=== PATIENT | male | born 1995 | race American Indian/Alaskan Native ===

== ENCOUNTER 2017-10-11 18:28 | Inpatient (IN) | payer OTHER ==
--- NOTE | 2017-10-11 20:20 | Emergency Department Report ---
HPI - General Time Seen by Provider: 10/11/17 20:00 - HPI HPI: 22-year-old -[place]ian male presents to the emergency department, with his mother at bedside, made of some possible depression. The patient himself is not currently talking and will not open his eyes. However when I attempt to take his arms/hands out of his pockets, he uses a lot of strength to make sure that I am unable to do this and it appears that the patient is cognizant about the situation but just acting defiantly. Therefore I have very little history from the patient himself. Apparently he does not have any past medical or psychiatric history. Mom says that lately he has been staying to himself and has been eating very little. She says that he gets up, uses the bathroom, and then goes back to his room by himself. The patient lives most of the time in [place] and mom has been saving up money to get him a ticket to get home and just recently bought him a ticket. She says that he is anxious to get back to [place]. However there has been no change once she got the ticket. She says that he usually, even before presentation, does spontaneous eye opening, walks around, will sometimes say a few words but he is basically not communicating much. ED Review of Systems ROS: Stated complaint: AMS Other details as noted in HPI Comment: All other systems reviewed and negative Constitutional: denies: chills, fever Eyes: denies: eye pain, eye discharge, vision change ENT: denies: ear pain, throat pain Respiratory: denies: cough, shortness of breath, wheezing Cardiovascular: denies: chest pain, palpitations Gastrointestinal: denies: abdominal pain, nausea, diarrhea Genitourinary: denies: urgency, dysuria Musculoskeletal: denies: back pain, joint swelling, arthralgia Skin: denies: rash, lesions Neurological: denies: headache, weakness, paresthesias Psychiatric: depression Physical Exam - Physical Exam Physical Exam: GENERAL: The patient is well-developed well-nourished. HENT: Normocephalic. Atraumatic. Patient has moist mucous membranes. EYES: Pupils equal reactive to light bilaterally. NECK: Supple. Trachea is midline. CHEST/LUNGS: Clear to auscultation. There is no respiratory distress noted. HEART/CARDIOVASCULAR: Regular. There is mild tachycardia. There is no murmur. ABDOMEN: Abdomen is soft, nontender. Patient has normal bowel sounds. There is no abdominal distention. SKIN: Skin is warm and dry. NEURO: Patient appears awake but will not open his eyes spontaneously. He will not follow any commands. He is nonverbal. He does withdraw from painful stimuli. MUSCULOSKELETAL: There is no tenderness or deformity. There is no limitation range of motion. There is no evidence of acute injury. ED Course - Reevaluation(s) Reevaluation #1: Patient was seen by Tess, the psych rn private duty, who was unable to elicit anything from the patient as well. He is still completely nonverbal, will not open his eyes. He then started making very loud grunting sounds and/or abnormal sounds were heard throughout the emergency department. Upon further questioning, mom admits that he appears occasionally to be talking to himself. All this together appears consistent with some type of acute psychosis. We will continue with a medical clearance but the patient has been made a 1013. 10/11/17 20:46 10/11/17 21:[address], I have been explaining to the patient himself, as well as mother, the process involved regarding the 1013 and medical clearance. I directly spoke with the patient, just in case he is just being stubborn and or defiant, to let him know that if he is able to answer comes cooperative, then possibly he would not require a 1013 and the longer or any medication to be given. However the patient has continued to maintain the same behavior. He is unwilling to allow any vitals to be obtained, labs to be drawn, or anything regarding his medical clearance. Mom is concerned regarding him getting antipsychotic medication. I spoke with her and told her that we will try and use some Ativan and or Benadryl at first but that some antipsychotic medication may be necessary if he still is not cooperative or if there is any danger towards himself or ED staff. ED Medical Decision Making - Lab Data Result diagrams: 10/11/17 21:16 10/11/17 21:16 - Radiology Data Radiology results: report reviewed EXAM: CT HEAD/BRAIN WO CON HISTORY: Altered mental status TECHNIQUE: CT evaluation was performed of the head without the use of intravenous contrast administration. PRIORS: None. FINDINGS: Normal density, size and configuration of the brain parenchyma and CSF containing spaces. Dural calcifications incidentally noted. No evidence of acute hemorrhage. no mass effect, edema or shift of midline structures. Visualized paranasal sinuses are clear. No pathologic fluid collection. Calvarium is normal. IMPRESSION: No CT evidence of acute intracranial process. Transcribed By: ARLIN Dictated By: HEIDI ORDONEZ DO Electronically Authenticated By: HEIDI ORDONEZ DO Signed Date/Time: 10/12/17 0106 - Medical Decision Making The patient was originally brought in by his mother saying that he just was not eating much and showing some signs of depression. However on physical examination, the patient appears more consistent with acute psychosis. He is refusing to open his eyes, refusing to talk and will not be cooperative. On one aspect, it appears as if he understands the situation but is acting defiantly. For instance, I attempted to take his hand out of his pocket in order to check his radial pulse and he was using a lot of strength and/or force to make sure that I was unable to do so. He then started making some abnormal sounds could be heard throughout most of the emergency department. He started blowing heavily out of his nostrils. Mom also says that he has been trying to get back to [place], which he considers home, and he has been upset as she did not have the money to get him a ticket. However she was able to save money and got him a ticket today but instead of him becoming happier or joyful, his symptoms have worsened. He was seen by the psych rn private duty, Tess, who agrees that he appears to show some signs of acute psychosis and does not appear safe for discharge and should be made a 1013, which he was. He was given some Ativan and some Benadryl to help with his agitation and cooperation and we did require some physical restraints for a short time. At some point during the workup, the patient became slightly more cooperative. He began speaking although he answers in very short one to 2 word sentences and speaks in a very low tone and was able to give some basic information. However he still did not want to discuss the behavior that led him to come into the emergency department or the behavior he exhibited upon presentation. The labs are unremarkable and do not show any etiology of the patient's symptoms. Urine drug screen and blood alcohol levels are negative. CT scan of the head was done that does not show any bleed, shift, mass or any other acute process. The patient has been medically cleared for psychiatric placement. The patient was moved towards the back of the emergency department and once again became very agitated and tried to elope. - Differential Diagnosis depression, mood disorder, bipolar disorder, schizophrenia Critical Care Time: No Critical care attestation.: If time is entered above; I have spent that time in minutes in the direct care of this critically ill patient, excluding procedure time. ED Disposition Clinical Impression: Acute psychosis Disposition: DC/TX-65 PSY HOSP/PSY UNIT Is pt being admited?: No Condition: Stable Referrals: PRIMARY CAREMD [Primary Care Provider] - 3-5 Days Time of Disposition: 01:22
[2017-10-11] MEDS ORDERED: BENADRYL IM ONE (20:57)
[2017-10-11] MEDS ORDERED: ATIVAN ONE (20:57)
[2017-10-11] MEDS ORDERED: BENADRYL ONE (20:57)
[2017-10-11] MEDS ORDERED: ATIVAN IM ONE (20:57)
[2017-10-11 21:44] LABS: Alanine Aminotransferase 9 units/L (7-56); Albumin 4.8 g/dL (3.9-5); BUN/Creatinine Ratio 17; Blood Urea Nitrogen 20 mg/dL (9-20); Calcium 9.8 mg/dL (8.4-10.2); Hemolysis Index 22
[2017-10-11 22:03] LABS: Hemoglobin 14.6 gm/dl (11.8-15.2); Mean Corpuscular HGB Conc 33 % (32-34); Mean Corpuscular Hemoglobin 28 pg (28-32); Mean Corpuscular Volume 86 fl (84-94); Platelet Count 257 K/mm3 (140-440); Red Blood Count 5.25 M/mm3 (3.65-5.03); Red Cell Distribution Width 13.9 % (13.2-15.2)
[2017-10-11 22:40] LABS: Anisocytosis 1+; Band Neutrophils # (Manual) 0.1 K/mm3; Eosinophils % (Manual) 0 % (0.0-4.3); Platelet Estimate Consistent w Auto; Total Cells Counted 100
[2017-10-11 23:30] LABS: Bilirubin,Urine NEG (Negative); Blood,Urine NEG (Negative); Color,Urine Yellow (Yellow); Mucus,Urine FEW /HPF; Protein,Urine <15 mg/dL mg/dL (Negative); Urobilinogen,Urine < 2.0 mg/dL (<2.0)
[2017-10-11 23:40] LABS: Amphetamine Screen,Urine PRESUMPTIVE NEGATIVE; Benzodiazepines Screen,Urine PRESUMPTIVE NEGATIVE; Cannabinoid Screen,Urine PRESUMPTIVE NEGATIVE; Cocaine Screen,Urine PRESUMPTIVE NEGATIVE; Methadone Screen,Urine PRESUMPTIVE NEGATIVE; Opiate Screen,Urine PRESUMPTIVE NEGATIVE
--- NOTE | 2017-10-12 01:10 | Cat Scan Report ---
FINAL REPORT EXAM: CT HEAD/BRAIN WO CON HISTORY: Altered mental status TECHNIQUE: CT evaluation was performed of the head without the use of intravenous contrast administration. PRIORS: None. FINDINGS: Normal density, size and configuration of the brain parenchyma and CSF containing spaces. Dural calcifications incidentally noted. No evidence of acute hemorrhage. no mass effect, edema or shift of midline structures. Visualized paranasal sinuses are clear. No pathologic fluid collection. Calvarium is normal. IMPRESSION: No CT evidence of acute intracranial process.
--- NOTE | 2017-10-12 14:33 | Consultation ---
History of Present Illness - Reason for Consult Consult date: 10/12/17 Reason for consult: Mental Health Evaluation Requesting physician: SANDRA SOLORIO - Chief Complaint Chief complaint: "I don't feel well mentally" - History of Present Psychiatric Illness 22-year-old -[place] male presents to the emergency department with bizarre behavior. Today the patient is calm during the assessment. He could not explain his behavior the last 3 days. He stated that he does not feel well "mentally." He stated not sleeping for several days prior to his admission to the hospital. He was asked did he have lots of energy during this time, he stated, "yes." Most of his answers to questions were vague. He would not confirm being suicidal, but stated having suicidal thoughts for several days. He would not confirm or deny being depressed, but the patient is withdrawn with poor eye contact. He denies HI's and AVH's. He admitted to having a poor appetite. He stated that he smoked marijuana in the past, but denies alcohol consumption (etoh). Per the record, the patient was given prn medication for agitation/psychosis overnight. Medications and Allergies Allergies Allergy/AdvReac Type Severity Reaction Status Date / Time Unable to Assess Allergy Unverified 10/11/17 21:27 Past psychiatric history - Past Medical History Past Medical History: No medical history Past Surgical History: No surgical history - past Psychiatric treatment and history psychiatric treatment history: Denies a psy hx and fam psy hx. - Social History Social history: lives with family Mental Status Exam - Vital signs Last Vital Signs Temp 97.4 F L 10/12/17 11:37 Pulse 100 H 10/12/17 11:37 Resp 18 10/12/17 11:37 BP 122/75 10/12/17 11:37 Pulse Ox 99 10/12/17 11:37 - Exam Narrative exam: MSE: Appearance: calm, cooperative Behavior: poor eye contact Speech: regular rate and tone Mood: "okay" withdrawn Affect: congruent to mood Thought Process: circumstantial Thought Content: denies HI's and AVH's. He would not confirm Si's, but stated having suicidal thoughts for several days Motor Activity: lying in bed Cognition: A/O x3 Insight: poor Judgment: poor Results Result Diagrams: 10/11/17 21:16 10/11/17 21:16 Abnormal lab results 10/11/17 10/11/17 Range/Units 21:16 21:16 WBC 11.8 H (4.5-11.0) K/mm3 RBC 5.25 H (3.65-5.03) M/mm3 Lymphocytes % (Manual) 49.0 H (13.4-35.0) % Lymphocytes # (Manual) 5.8 H (1.2-5.4) K/mm3 Potassium 3.4 L (3.6-5.0) mmol/L Chloride 91.7 L (98-107) mmol/L Carbon Dioxide 12 L (22-30) mmol/L Glucose 124 H (75-100) mg/dL All other labs normal. Assessment and Plan Assessment and plan: Impression: Unspecified Mood DO. Today the patient is calm during the assessment. DDx: Bipolar DO mixed episode Recommendation/Plan: Continue 1013 with placement to inpatient psy services. Start Seroquel 200 mg PO HS for mood. Discussed possible metabolic side effects of Seroquel with patient.
[2017-10-13] MEDS ORDERED: HALDOL IM ONE (06:31)
--- NOTE | 2017-10-13 17:27 | Progress Note ---
Subjective - Reason for Consult Consult date: 10/13/17 Reason for consult: follow up - Chief Complaint Chief complaint: would not speak 22-year-old -Malaysian male presents to the emergency department with bizarre behavior. He was verbal yesterday according to the record. Today he is not. He has not eaten today according to staff. He urinated on himself more than once today. He was observed in a position. He responded to direction to get out of the bed. He did not open his eyes. Mental Status Exam - Vital signs Last Vital Signs Temp 98.7 F 10/12/17 22:00 Pulse 96 H 10/12/17 22:00 Resp 18 10/12/17 22:00 BP 108/68 10/12/17 22:00 Pulse Ox 98 10/12/17 22:00 - Exam Narrative exam: He was observed to be in a position. He was non verbal and kept his eyes closed. He urinated on himself Assessment and Plan Impression: Unspecified Mood DO. unspecified psychosis r/o catatonia. DDx: Bipolar DO mixed episode Recommendation/Plan: Continue 1013 with placement to inpatient psy services. discontinue seroquel and start zyprexa zydis 5mg hs for compliance. Obtain an accurate weight. Monitor I& Os and encourage him to drink plenty of fluids and eat.
--- NOTE | 2017-10-15 11:00 | Progress Note ---
Subjective - Reason for Consult Consult date: 10/15/17 Reason for consult: Psychiatry Follow-up - Chief Complaint Chief complaint: "I think I am better" 22-year-old -Filipino male presents to the emergency department with bizarre behavior. Today the patient is calm, but disorganized during the assessment. His answers to questions were not logical when asked. His eye contact was poor the entire time during the interview. He denies SI/HI's and AVH 's. No indications of side effects of his medication. Per the staff, the patient did eat some of his meals yesterday. Mental Status Exam - Vital signs Last Vital Signs Temp 97.7 F 10/15/17 08:29 Pulse 83 10/15/17 08:29 Resp 17 10/15/17 08:29 BP 119/92 10/15/17 08:29 Pulse Ox 100 10/15/17 08:29 - Exam Narrative exam: MSE: Appearance: calm Behavior: poor eye contact Speech: regular rate and tone Mood: withdrawn Affect: congruent to mood Thought Process: circumstantial Thought Content: denies SI/HI's and AVH's Motor Activity: lying in bed Cognition: A/O x3 Insight: poor Judgment: poor Assessment and Plan Impression: Unspecified Mood DO with psy features. Today the patient is calm, but disorganized during the assessment. DDx: Bipolar DO mixed episode Recommendation/Plan: Continue 1013 with placement to inpatient psy services. Continue Zyprexa Zydis 5 mg PO ODT for mood/psychosis. Discussed possible metabolic side effects of Zyprexa Zydis with patient.
[2017-10-16] MEDS ORDERED: BENADRYL ONE ×2 (00:39→13:52)
[2017-10-16] MEDS ORDERED: BENADRYL IV ONE (01:08)
[2017-10-16] MEDS ORDERED: HALDOL ONE (13:53)
[2017-10-16] MEDS ORDERED: ATIVAN ONE (13:53)
[2017-10-16] MEDS ORDERED: HALDOL IM ONE (14:07)
[2017-10-16] MEDS ORDERED: BENADRYL IM ONE (14:07)
[2017-10-16] MEDS ORDERED: ATIVAN IM ONE (14:08)
--- NOTE | 2017-10-16 15:22 | Progress Note ---
Subjective - Reason for Consult Consult date: 10/16/17 Reason for consult: Psychiatry Follow-up - Chief Complaint Chief complaint: "Patient would not speak" 22-year-old -Citizen Of [place] male presents to the emergency department with bizarre behavior. Today the patient is calm during the assessment. He kept his head under the sheets and would not answer any questions asked of him. No gestures of SI/HI's. No indications of side effects of his medication. Mental Status Exam - Vital signs Last Vital Signs Temp 98.7 F 10/16/17 10:23 Pulse 52 L 10/16/17 10:23 Resp 20 10/16/17 10:46 BP 100/69 10/16/17 10:23 Pulse Ox 100 10/16/17 10:46 - Exam Narrative exam: MSE: Appearance: calm Behavior: poor eye contact Speech: unable to assess Mood: unable to assess Affect: congruent to mood Thought Process: unable to assess Thought Content: no gestures of SI/HI's and AVH's Motor Activity: lying in bed Cognition: A/O x3 Insight: unable to assess Judgment: unable to assess Assessment and Plan Impression: Unspecified Mood DO with psy features. Today the patient is calm during the assessment. He kept his head under the sheets and would not answer any questions asked of him. DDx: Bipolar DO mixed episode Recommendation/Plan: Continue 1013 with placement to inpatient psy services. Continue Zyprexa Zydis 5 mg PO ODT for mood/psychosis. Discussed possible metabolic side effects of Zyprexa Zydis with patient.
--- NOTE | 2017-10-18 11:02 | Progress Note ---
Subjective - Reason for Consult Consult date: 10/18/17 Reason for consult: Psychiatry Follow-up - Chief Complaint Chief complaint: "Something isn't right" 22-year-old -[place] male presents to the emergency department with bizarre behavior. Today the patient is calm during the assessment. He stated that he isn't right, but could not explain why when asked. He stated hearing voices around him, but try ignore them. Per the staff, the patient is eating his meal. He denies SI/HI's and VH's. He denies any side effects of his medication. Mental Status Exam - Vital signs Last Vital Signs Temp 98.2 F 10/17/17 19:45 Pulse 78 10/17/17 19:45 Resp 16 10/17/17 19:45 BP 127/83 10/17/17 19:45 Pulse Ox 100 10/17/17 19:45 - Exam Narrative exam: MSE: Appearance: calm Behavior: poor eye contact Speech: regular rate and tone Mood: "I am not right" Affect: flat Thought Process: circumstantial Thought Content: denies SI/HI's and VH's Motor Activity: ambulatory Cognition: A/O x3 Insight: poor Judgment: poor Assessment and Plan Impression: Unspecified Mood DO with psy features. Today the patient is calm during the assessment. DDx: Bipolar DO mixed episode Recommendation/Plan: Extended 1013 with placement to inpatient psy services. Modify Zyprexa Zydis to 10 mg PO ODT HS for psychosis/mood. Discussed possible metabolic side effects of Zyprexa Zydis patient.
[2017-10-18] MEDS ORDERED: GEODON IM ONE ×3 (17:06→20:53)
[2017-10-18] MEDS ORDERED: WATER FOR INJ (PF) IJ ONE (17:15)
--- NOTE | 2017-10-19 11:02 | Emergency Department Report ---
Luisa Doc - Documentation Documentation: I was asked to sign a transfer form on this patient who is "ready to go to [place]". As such I reviewed his laboratory database and found him to have a CO2 of 12 and anion gap of 39, 8 days ago. According to nursing staff, the patient has been doing well lately. His vital signs are stable. At this point my plan is to examine the patient and recheck his labs. On examination. The patient will answer questions yes or no. He denies pain. He doesn't elaborate on why he is in the emergency department. He denies overdose. He will follow some simple commands. However he will not provide any historical information. Review of systems Unobtainable Past medical history Acute psychosis Social history Denies substance abuse Physical exam Patient is laying with a sheet over his head. He is noncommunicative. HEENT sclerae and conjunctiva are clear oral mucosa appears a bit dry Neck supple no meningismus and no thyromegaly Respiratory breath sounds are clear and equal normal work of breathing Cardiovascular S1 and S2 regular rhythm and rate without murmur GI the abdomen is soft plan are nontender oral bowel sounds are appreciated no organomegaly Musculoskeletal no edema no deformity or range of motion Neurological exam nonfocal neurological exam cranial nerves as tested are intact no motor or sensory deficit Psychiatric the patient appears to be distracted disorganized and perhaps tangential thought. He may be responding to internal stimuli. He is not agitated nor anxious. He does not appear to be actively hallucinating. Laboratory data The anion gap has corrected. The CO2 has corrected. However the patient is found to be in rhabdomyolysis Clinical impression #1 acute psychosis #2 rhabdomyolysis #3 increased anion gap Plan Patient is referred to Dr. Russell of the hospital service for further care and management IV fluid has been initiated. I am uncertain why the patient had a substantial anion gap and low CO2 approximately 8 days ago.
[2017-10-19 11:37] LABS: Hematocrit 41.9 % (35.5-45.6); Hemoglobin 13.6 gm/dl (11.8-15.2); Mean Corpuscular HGB Conc 33 % (32-34); Mean Corpuscular Hemoglobin 28 pg (28-32); Mean Corpuscular Volume 85 fl (84-94); Platelet Count 209 K/mm3 (140-440); Red Blood Count 4.95 M/mm3 (3.65-5.03); Red Cell Distribution Width 13.7 % (13.2-15.2)
[2017-10-19 11:58] LABS: Alanine Aminotransferase 24 units/L (7-56); Albumin 4.3 g/dL (3.9-5); BUN/Creatinine Ratio 19; Blood Urea Nitrogen 13 mg/dL (9-20); Calcium 9.2 mg/dL (8.4-10.2); Creatine Kinase MB 2.9 ng/mL (0.0-4.0); Hemolysis Index 10
[2017-10-19 12:03] LABS: Bilirubin,Direct < 0.2 mg/dL (0-0.2)
[2017-10-19 12:13] LABS: Basophils % (Manual) 0 % (0.0-1.8); Total Cells Counted 100
[2017-10-19 12:14] LABS: RBC Morphology Normal
[2017-10-19] MEDS ORDERED: NACL 0.9% 1000 ML 1,000 ML IV ONE (13:24)
[2017-10-19] MEDS ORDERED: MORPHINE IV PRN ×2 (16:04→16:26)
[2017-10-19] MEDS ORDERED: TYLENOL PO PRN (16:04)
[2017-10-19] MEDS ORDERED: PERCOCET 5/325 PO PRN (16:04)
[2017-10-19] MEDS ORDERED: SODIUM CHLORIDE FLUSH SYRINGE 10 ML IV PRN (16:04)
[2017-10-19] MEDS ORDERED: ZOFRAN IV PRN (16:04)
[2017-10-19] MEDS ORDERED: AMBIEN PO PRN (16:04)
--- NOTE | 2017-10-19 16:04 | History and Physical Report ---
History of Present Illness Date of examination: 10/19/17 Date of admission: 10/19/17 13:48 Chief complaint: CC Elevated CK per ED physician-Rhabdomyolysis History of present illness: COUNCIL: 22-year-old -[place] male presented to the emergency department with bizarre behavior and catatonic state. Was in ER rm 14 for 8 days .Today while being cleared for transfer ED physician noted High CK levels of around 3900 = hence admission No SOB .Now calm and cooperative Past History Past Medical History: No medical history Past Surgical History: No surgical history Social history: lives with family, full code Family history: no significant family history Medications and Allergies Allergies Allergy/AdvReac Type Severity Reaction Status Date / Time No Known Allergies Allergy Unverified 10/17/17 23:10 Home Medications Medication Instructions Recorded Confirmed Last Taken Type Unobtainable 10/12/17 10/12/17 Unknown History Active Meds: Active Medications Olanzapine (Zyprexa Zydis) 10 mg PO HS MARYELLEN Last Admin: 10/19/17 06:54 Dose: Not Given Review of Systems All systems: negative Exam - Constitutional Vitals: Temp Pulse Resp BP Pulse Ox 97.3 F L 100 H 18 115/73 100 10/18/17 21:12 10/18/17 10:00 10/18/17 23:11 10/18/17 21:12 10/18/17 23:11 General appearance: Present: no acute distress, well-nourished - EENT Eyes: Present: PERRL ENT: hearing intact, clear oral mucosa - Neck Neck: Present: supple, normal ROM - Respiratory Respiratory effort: normal Respiratory: bilateral: CTA - Cardiovascular Heart Sounds: Present: S1 & S2. Absent: rub, click - Extremities Extremities: pulses symmetrical, No edema Peripheral Pulses: within normal limits - Abdominal General gastrointestinal: Present: soft, non-tender, non-distended, normal bowel sounds Male genitourinary: Present: normal - Integumentary Integumentary: Present: clear, warm, dry - Musculoskeletal Musculoskeletal: gait normal, strength equal bilaterally - Psychiatric Psychiatric: other - Neurologic Neurologic: CNII-XII intact, moves all extremities - Additional findings Additional findings: Appearance: calm Behavior: poor eye contact Speech: regular rate and tone Mood: Irritable Affect: flat Thought Process: circumstantial Thought Content: Unable to ascertain Motor Activity: ambulatory Cognition: A/O x3 Insight: poor Judgment: poor Results - Labs CBC & Chem 7: 10/20/17 06:42 10/19/17 11:20 Labs: Laboratory Last Values WBC 5.3 K/mm3 (4.5-11.0) 10/19/17 11:20 RBC 4.95 M/mm3 (3.65-5.03) 10/19/17 11:20 Hgb 13.6 gm/dl (11.8-15.2) 10/19/17 11:20 Hct 41.9 % (35.5-45.6) 10/19/17 11:20 MCV 85 fl (84-94) 10/19/17 11:20 MCH 28 pg (28-32) 10/19/17 11:20 MCHC 33 % (32-34) 10/19/17 11:20 RDW 13.7 % (13.2-15.2) 10/19/17 11:20 Plt Count 209 K/mm3 (140-440) 10/19/17 11:20 [place] % (Auto) Freight Service Inspector 10/19/17 11:20 Lymph # Freight Service Inspector 10/11/17 21:16 Add Manual Diff Complete 10/19/17 11:20 Total Counted 100 10/19/17 11:20 Seg Neuts % (Manual) 41.0 % (40.0-70.0) 10/19/17 11:20 Band Neutrophils % 0 % 10/19/17 11:20 Lymphocytes % (Manual) 49.0 % (13.4-35.0) H 10/19/17 11:20 Reactive Lymphs % (Man) 0 % 10/19/17 11:20 Monocytes % (Manual) 7.0 % (0.0-7.3) 10/19/17 11:20 Eosinophils % (Manual) 3.0 % (0.0-4.3) 10/19/17 11:20 Basophils % (Manual) 0 % (0.0-1.8) 10/19/17 11:20 Metamyelocytes % 0 % 10/19/17 11:20 Myelocytes % 0 % 10/19/17 11:20 Promyelocytes % 0 % 10/19/17 11:20 Blast Cells % 0 % 10/19/17 11:20 Nucleated RBC % Not Reportable 10/19/17 11:20 Seg Neutrophils # Man 2.2 K/mm3 (1.8-7.7) 10/19/17 11:20 Band Neutrophils # 0.0 K/mm3 10/19/17 11:20 Lymphocytes # (Manual) 2.6 K/mm3 (1.2-5.4) 10/19/17 11:20 Abs React Lymphs (Man) 0.0 K/mm3 10/19/17 11:20 Monocytes # (Manual) 0.4 K/mm3 (0.0-0.8) 10/19/17 11:20 Eosinophils # (Manual) 0.2 K/mm3 (0.0-0.4) 10/19/17 11:20 Basophils # (Manual) 0.0 K/mm3 (0.0-0.1) 10/19/17 11:20 Metamyelocytes # 0.0 K/mm3 10/19/17 11:20 Myelocytes # 0.0 K/mm3 10/19/17 11:20 Promyelocytes # 0.0 K/mm3 10/19/17 11:20 Blast Cells # 0.0 K/mm3 10/19/17 11:20 WBC Morphology Not Reportable 10/19/17 11:20 Hypersegmented Neuts Not Reportable 10/19/17 11:20 Hyposegmented Neuts Not Reportable 10/19/17 11:20 Hypogranular Neuts Not Reportable 10/19/17 11:20 Smudge Cells Not Reportable 10/19/17 11:20 Toxic Granulation Not Reportable 10/19/17 11:20 Toxic Vacuolation Not Reportable 10/19/17 11:20 Dohle Bodies Not Reportable 10/19/17 11:20 Pelger-Huet Anomaly Not Reportable 10/19/17 11:20 Stanislav Rods Not Reportable 10/19/17 11:20 Platelet Estimate Appears normal 10/19/17 11:20 Clumped Platelets Not Reportable 10/19/17 11:20 Plt Clumps, EDTA Not Reportable 10/19/17 11:20 Large Platelets Not Reportable 10/19/17 11:20 Giant Platelets Not Reportable 10/19/17 11:20 Platelet Satelliting Not Reportable 10/19/17 11:20 Plt Morphology Comment Not Reportable 10/19/17 11:20 RBC Morphology Normal 10/19/17 11:20 Dimorphic RBCs Not Reportable 10/19/17 11:20 Polychromasia Not Reportable 10/19/17 11:20 Hypochromasia Not Reportable 10/19/17 11:20 Poikilocytosis Not Reportable 10/19/17 11:20 Anisocytosis Not Reportable 10/19/17 11:20 Microcytosis Not Reportable 10/19/17 11:20 Macrocytosis Not Reportable 10/19/17 11:20 Spherocytes Not Reportable 10/19/17 11:20 Pappenheimer Bodies Not Reportable 10/19/17 11:20 Sickle Cells Not Reportable 10/19/17 11:20 Target Cells Not Reportable 10/19/17 11:20 Tear Drop Cells Not Reportable 10/19/17 11:20 Ovalocytes Not Reportable 10/19/17 11:20 Helmet Cells Not Reportable 10/19/17 11:20 Quiles-[place] Bodies Not Reportable 10/19/17 11:20 [place] Rings Not Reportable 10/19/17 11:20 [place] Cells Not Reportable 10/19/17 11:20 Bite Cells Not Reportable 10/19/17 11:20 Crenated Cell Not Reportable 10/19/17 11:20 Elliptocytes Not Reportable 10/19/17 11:20 Acanthocytes (Spur) Not Reportable 10/19/17 11:20 Rouleaux Not Reportable 10/19/17 11:20 Hemoglobin C Crystals Not Reportable 10/19/17 11:20 Schistocytes Not Reportable 10/19/17 11:20 Malaria parasites Not Reportable 10/19/17 11:20 Cali Bodies Not Reportable 10/19/17 11:20 Hem Pathologist Commnt No 10/19/17 11:20 Sodium 137 mmol/L (137-145) 10/19/17 11:20 Potassium 3.5 mmol/L (3.6-5.0) L 10/19/17 11:20 Chloride 95.9 mmol/L (98-107) L 10/19/17 11:20 Carbon Dioxide 27 mmol/L (22-30) 10/19/17 11:20 Anion Gap 18 mmol/L 10/19/17 11:20 BUN 13 mg/dL (9-20) 10/19/17 11:20 Creatinine 0.7 mg/dL (0.8-1.5) L 10/19/17 11:20 Estimated GFR > 60 ml/min 10/19/17 11:20 BUN/Creatinine Ratio 19 % 10/19/17 11:20 Glucose 71 mg/dL (75-100) L 10/19/17 11:20 Lactic Acid 1.20 mmol/L (0.7-2.0) 10/19/17 11:20 Calcium 9.2 mg/dL (8.4-10.2) 10/19/17 11:20 Total Bilirubin 0.60 mg/dL (0.1-1.2) 10/19/17 11:20 Direct Bilirubin < 0.2 mg/dL (0-0.2) 10/19/17 11:20 AST 59 units/L (5-40) H 10/19/17 11:20 ALT 24 units/L (7-56) 10/19/17 11:20 Alkaline Phosphatase 52 units/L (35-129) 10/19/17 11:20 Total Creatine Kinase 3907 units/L (55-170) H 10/19/17 11:20 CK-MB (CK-2) 2.9 ng/mL (0.0-4.0) 10/19/17 11:20 CK-MB (CK-2) Rel Index 0.0 (0-4) 10/19/17 11:20 Total Protein 7.2 g/dL (6.3-8.2) 10/19/17 11:20 Albumin 4.3 g/dL (3.9-5) 10/19/17 11:20 Albumin/Globulin Ratio 1.5 % 10/19/17 11:20 TSH 1.970 mlU/mL (0.270-4.200) 10/11/17 21:16 Urine Color Yellow (Yellow) 10/11/17 23:09 Urine Turbidity Clear (Clear) 10/11/17 23:09 Urine pH 5.0 (5.0-7.0) 10/11/17 23:09 Ur Specific [place] 1.024 (1.003-1.030) 10/11/17 23:09 Urine Protein <15 mg/dl mg/dL (Negative) 10/11/17 23:09 Urine Glucose (UA) Neg mg/dL (Negative) 10/11/17 23:09 Urine Ketones 20 mg/dL (Negative) 10/11/17 23:09 Urine Blood Neg (Negative) 10/11/17 23:09 Urine Nitrite Neg (Negative) 10/11/17 23:09 Urine Bilirubin Neg (Negative) 10/11/17 23:09 Urine Urobilinogen < 2.0 mg/dL (<2.0) 10/11/17 23:09 Ur Leukocyte Esterase Neg (Negative) 10/11/17 23:09 Urine WBC (Auto) 2.0 /HPF (0.0-6.0) 10/11/17 23:09 Urine RBC (Auto) 1.0 /HPF (0.0-6.0) 10/11/17 23:09 Urine Mucus Few /HPF 10/11/17 23:09 Salicylates < 0.3 mg/dL (2.8-20.0) L 10/19/17 11:20 Urine Opiates Screen Presumptive negative 10/11/17 23:09 Urine Methadone Screen Presumptive negative 10/11/17 23:09 Acetaminophen < 15.0 ug/mL (10.0-30.0) 10/19/17 11:20 Ur Barbiturates Screen Presumptive negative 10/11/17 23:09 Ur Phencyclidine Scrn Presumptive negative 10/11/17 23:09 Ur Amphetamines Screen Presumptive negative 10/11/17 23:09 U Benzodiazepines Scrn Presumptive negative 10/11/17 23:09 Urine Cocaine Screen Presumptive negative 10/11/17 23:09 U Marijuana (THC) Screen Presumptive negative 10/11/17 23:09 Drugs of Abuse Note Disclamer 10/11/17 23:09 Plasma/Serum Alcohol < 0.01 % (0-0.07) 10/11/17 21:16 Short CBC 10/19/17 10/20/17 Range/Units 11:20 06:42 WBC 5.3 5.0 (4.5-11.0) K/mm3 Hgb 13.6 12.5 (11.8-15.2) gm/dl Hct 41.9 38.2 (35.5-45.6) % Plt Count 209 195 (140-440) K/mm3 BMP 10/19/17 11:20 Sodium 137 Potassium 3.5 L Chloride 95.9 L Carbon Dioxide 27 BUN 13 Creatinine 0.7 L Glucose 71 L Calcium 9.2 Cardiac Enzymes 10/19/17 10/19/17 Range/Units 11:20 17:24 Total Creatine Kinase 3907 H 3015 H (55-170) units/L CK-MB (CK-2) 2.9 (0.0-4.0) ng/mL Liver Function 10/19/17 Range/Units 11:20 Total Bilirubin 0.60 (0.1-1.2) mg/dL Direct Bilirubin < 0.2 (0-0.2) mg/dL AST 59 H (5-40) units/L ALT 24 (7-56) units/L Alkaline Phosphatase 52 (35-129) units/L Albumin 4.3 (3.9-5) g/dL Assessment and Plan Advance Directives: Yes (Full code) VTE prophylaxis?: Chemical Plan of care discussed with patient/family: Yes - Patient Problems (1) Rhabdomyolysis Current Visit: Yes Status: Acute Qualifiers: Rhabdomyolysis type: non-traumatic Qualified Code(s): M62.82 - Rhabdomyolysis Plan to address problem: Probably sec to Catatonic state IV fluids for and trend CK Discharge if below 1000 and trending down (2) Acute psychosis Current Visit: No Status: Acute Plan to address problem: MH/psych consult (3) Hypokalemia Current Visit: Yes Status: Acute Plan to address problem: Supplemented (4) DVT prophylaxis Current Visit: Yes Status: Acute Plan to address problem: On Heparin
[2017-10-19] MEDS ORDERED: D5NS 1,000 ML IV SCH (17:00)
--- NOTE | 2017-10-19 17:26 | Progress Note ---
Subjective - Reason for Consult Consult date: 10/19/17 Reason for consult: psychiatric follow-up Requesting physician: JAIDEN PADRON - Chief Complaint Chief complaint: "Something isn't right" 22-year-old -[place] male presented to the emergency department with bizarre behavior. Yesterday patient was agitated and was banging on the palate was also had to receive when necessary to calm down. Today he was accepted in a psychiatric facility and prior to his transportation when his labs were reviewed his CK was elevated at 3907. Since his transfer was placed on hold and he is being admitted to the inpatient unit for correction of his CK and to prevent any rhabdomyolysis. Today the patient, was irritable during the discussion with me in the ED. Initially he stated he was "okay", and then cover himself with a sheet and refused to speak. Yesterday he had endorsed having auditory hallucinations. He was not cooperative today with me. Mental Status Exam - Vital signs Last Vital Signs Temp 98.5 F 10/19/17 16:05 Pulse 63 10/19/17 16:05 Resp 16 10/19/17 16:05 BP 100/65 10/19/17 16:05 Pulse Ox 100 10/19/17 16:05 - Exam Narrative exam: MSE: Appearance: calm Behavior: poor eye contact Speech: regular rate and tone Mood: Irritable Affect: flat Thought Process: circumstantial Thought Content: Unable to ascertain Motor Activity: ambulatory Cognition: A/O x3 Insight: poor Judgment: poor Assessment and Plan Assessment and Plan Impression: Unspecified Mood DO with psy features. Today the patient is calm during the assessment. DDx: Bipolar DO mixed episode Recommendation/Plan: Patient is being admitted to the medical floor for correction of his elevated CK levels. Would recommend holding off on any antipsychotic medications for now until the CK levels trended down. Zyprexa can be restarted back when the CK levels were return to normal. Continue the patient on 1013 and facilitate transfer to an inpatient psychiatric hospital for continued care.
[2017-10-19] MEDS: PEPCID PO SCH (22:27)
[2017-10-19] MEDS: HEPARIN SUB-Q SCH (22:29)
[2017-10-19] MEDS: SODIUM CHLORIDE FLUSH SYRINGE 10 ML IV SCH (22:29)
[2017-10-20 07:04] LABS: Basophils # (Auto) 0.1 K/mm3 (0.0-0.1); Basophils % (Auto) 1.4 % (0.0-1.8); Eosinophils # (Auto) 0.1 K/mm3 (0.0-0.4); Eosinophils % (Auto) 2.1 % (0.0-4.3); Hematocrit 38.2 % (35.5-45.6); Hemoglobin 12.5 gm/dl (11.8-15.2); Lymphocytes % (Auto) 41.3 % (13.4-35.0); Mean Corpuscular HGB Conc 33 % (32-34); Mean Corpuscular Hemoglobin 27 pg (28-32); Mean Corpuscular Volume 84 fl (84-94); Monocytes # (Auto) 0.8 K/mm3 (0.0-0.8); Monocytes % (Auto) 15.7 % (0.0-7.3); Platelet Count 195 K/mm3 (140-440); Red Blood Count 4.57 M/mm3 (3.65-5.03); Red Cell Distribution Width 13.9 % (13.2-15.2)
[2017-10-20 07:21] LABS: Alanine Aminotransferase 21 units/L (7-56); Albumin 3.8 g/dL (3.9-5); BUN/Creatinine Ratio 11; Blood Urea Nitrogen 9 mg/dL (9-20); Calcium 8.7 mg/dL (8.4-10.2); Hemolysis Index 30
[2017-10-20] MEDS: HEPARIN SUB-Q SCH ×2 (11:25→21:14)
[2017-10-20] MEDS: PEPCID PO SCH ×2 (11:25→21:14)
[2017-10-20] MEDS: SODIUM CHLORIDE FLUSH SYRINGE 10 ML IV SCH ×2 (11:25→21:16)
--- NOTE | 2017-10-20 13:35 | Progress Note ---
Assessment and Plan Assessment and plan: --Rhabdomyolysis; Continue aggressive IV hydration, closely monitor CK CK levels improved from 3741-8854, Preserved renal function, input output monitoring --Acute psychosis; Management per psychiatric, 1013 status Safety seat at the bedside --Hypokalemia; corrected, closely monitor electrolytes -- bipolar disorder; mixed episode; management per psych --DVT prophylaxis; Lovenox Closely monitor the patient had just management as needed Psych recommends transfer to inpatient psych facility when medically stable History Interval history: Patient seen and examined medical records reviewed Not very cooperative, porsha reports that the patient ate food Talks very little Not in acute distress Vital signs reviewed Hospitalist Physical - Physical exam Narrative exam: Refused physical examination - Constitutional Vitals: Temp Pulse Resp BP Pulse Ox 98.7 F 85 18 107/71 92 10/20/17 08:48 10/20/17 08:48 10/20/17 08:48 10/20/17 08:48 10/20/17 08:48 - Respiratory Respiratory: negative: rales, rhonchi Results - Labs CBC & Chem 7: 10/20/17 06:42 10/20/17 06:42 Labs: Laboratory Last Values WBC 5.0 K/mm3 (4.5-11.0) 10/20/17 06:42 RBC 4.57 M/mm3 (3.65-5.03) 10/20/17 06:42 Hgb 12.5 gm/dl (11.8-15.2) 10/20/17 06:42 Hct 38.2 % (35.5-45.6) 10/20/17 06:42 MCV 84 fl (84-94) 10/20/17 06:42 MCH 27 pg (28-32) L 10/20/17 06:42 MCHC 33 % (32-34) 10/20/17 06:42 RDW 13.9 % (13.2-15.2) 10/20/17 06:42 Plt Count 195 K/mm3 (140-440) 10/20/17 06:42 Lymph % (Auto) 41.3 % (13.4-35.0) H 10/20/17 06:42 [place] % (Auto) 15.7 % (0.0-7.3) H 10/20/17 06:42 Eos % (Auto) 2.1 % (0.0-4.3) 10/20/17 06:42 Baso % (Auto) 1.4 % (0.0-1.8) 10/20/17 06:42 Lymph # 2.0 K/mm3 (1.2-5.4) 10/20/17 06:42 [place] # 0.8 K/mm3 (0.0-0.8) 10/20/17 06:42 Eos # 0.1 K/mm3 (0.0-0.4) 10/20/17 06:42 Baso # 0.1 K/mm3 (0.0-0.1) 10/20/17 06:42 Add Manual Diff Complete 10/19/17 11:20 Total Counted 100 10/19/17 11:20 Seg Neutrophils % 39.5 % (40.0-70.0) L 10/20/17 06:42 Seg Neuts % (Manual) 41.0 % (40.0-70.0) 10/19/17 11:20 Band Neutrophils % 0 % 10/19/17 11:20 Lymphocytes % (Manual) 49.0 % (13.4-35.0) H 10/19/17 11:20 Reactive Lymphs % (Man) 0 % 10/19/17 11:20 Monocytes % (Manual) 7.0 % (0.0-7.3) 10/19/17 11:20 Eosinophils % (Manual) 3.0 % (0.0-4.3) 10/19/17 11:20 Basophils % (Manual) 0 % (0.0-1.8) 10/19/17 11:20 Metamyelocytes % 0 % 10/19/17 11:20 Myelocytes % 0 % 10/19/17 11:20 Promyelocytes % 0 % 10/19/17 11:20 Blast Cells % 0 % 10/19/17 11:20 Nucleated RBC % Not Reportable 10/19/17 11:20 Seg Neutrophils # 2.0 K/mm3 (1.8-7.7) 10/20/17 06:42 Seg Neutrophils # Man 2.2 K/mm3 (1.8-7.7) 10/19/17 11:20 Band Neutrophils # 0.0 K/mm3 10/19/17 11:20 Lymphocytes # (Manual) 2.6 K/mm3 (1.2-5.4) 10/19/17 11:20 Abs React Lymphs (Man) 0.0 K/mm3 10/19/17 11:20 Monocytes # (Manual) 0.4 K/mm3 (0.0-0.8) 10/19/17 11:20 Eosinophils # (Manual) 0.2 K/mm3 (0.0-0.4) 10/19/17 11:20 Basophils # (Manual) 0.0 K/mm3 (0.0-0.1) 10/19/17 11:20 Metamyelocytes # 0.0 K/mm3 10/19/17 11:20 Myelocytes # 0.0 K/mm3 10/19/17 11:20 Promyelocytes # 0.0 K/mm3 10/19/17 11:20 Blast Cells # 0.0 K/mm3 10/19/17 11:20 WBC Morphology Not Reportable 10/19/17 11:20 Hypersegmented Neuts Not Reportable 10/19/17 11:20 Hyposegmented Neuts Not Reportable 10/19/17 11:20 Hypogranular Neuts Not Reportable 10/19/17 11:20 Smudge Cells Not Reportable 10/19/17 11:20 Toxic Granulation Not Reportable 10/19/17 11:20 Toxic Vacuolation Not Reportable 10/19/17 11:20 Dohle Bodies Not Reportable 10/19/17 11:20 Pelger-Huet Anomaly Not Reportable 10/19/17 11:20 Stanislav Rods Not Reportable 10/19/17 11:20 Platelet Estimate Appears normal 10/19/17 11:20 Clumped Platelets Not Reportable 10/19/17 11:20 Plt Clumps, EDTA Not Reportable 10/19/17 11:20 Large Platelets Not Reportable 10/19/17 11:20 Giant Platelets Not Reportable 10/19/17 11:20 Platelet Satelliting Not Reportable 10/19/17 11:20 Plt Morphology Comment Not Reportable 10/19/17 11:20 RBC Morphology Normal 10/19/17 11:20 Dimorphic RBCs Not Reportable 10/19/17 11:20 Polychromasia Not Reportable 10/19/17 11:20 Hypochromasia Not Reportable 10/19/17 11:20 Poikilocytosis Not Reportable 10/19/17 11:20 Anisocytosis Not Reportable 10/19/17 11:20 Microcytosis Not Reportable 10/19/17 11:20 Macrocytosis Not Reportable 10/19/17 11:20 Spherocytes Not Reportable 10/19/17 11:20 Pappenheimer Bodies Not Reportable 10/19/17 11:20 Sickle Cells Not Reportable 10/19/17 11:20 Target Cells Not Reportable 10/19/17 11:20 Tear Drop Cells Not Reportable 10/19/17 11:20 Ovalocytes Not Reportable 10/19/17 11:20 Helmet Cells Not Reportable 10/19/17 11:20 Quiles-[place] Bodies Not Reportable 10/19/17 11:20 [place] Rings Not Reportable 10/19/17 11:20 [place] Cells Not Reportable 10/19/17 11:20 Bite Cells Not Reportable 10/19/17 11:20 Crenated Cell Not Reportable 10/19/17 11:20 Elliptocytes Not Reportable 10/19/17 11:20 Acanthocytes (Spur) Not Reportable 10/19/17 11:20 Rouleaux Not Reportable 10/19/17 11:20 Hemoglobin C Crystals Not Reportable 10/19/17 11:20 Schistocytes Not Reportable 10/19/17 11:20 Malaria parasites Not Reportable 10/19/17 11:20 Cali Bodies Not Reportable 10/19/17 11:20 Hem Pathologist Commnt No 10/19/17 11:20 Sodium 137 mmol/L (137-145) 10/20/17 06:42 Potassium 3.6 mmol/L (3.6-5.0) 10/20/17 06:42 Chloride 98.7 mmol/L (98-107) 10/20/17 06:42 Carbon Dioxide 25 mmol/L (22-30) 10/20/17 06:42 Anion Gap 17 mmol/L 10/20/17 06:42 BUN 9 mg/dL (9-20) 10/20/17 06:42 Creatinine 0.8 mg/dL (0.8-1.5) 10/20/17 06:42 Estimated GFR > 60 ml/min 10/20/17 06:42 BUN/Creatinine Ratio 11 % 10/20/17 06:42 Glucose 83 mg/dL (75-100) 10/20/17 06:42 Lactic Acid 1.20 mmol/L (0.7-2.0) 10/19/17 11:20 Calcium 8.7 mg/dL (8.4-10.2) 10/20/17 06:42 Total Bilirubin 0.40 mg/dL (0.1-1.2) 10/20/17 06:42 Direct Bilirubin < 0.2 mg/dL (0-0.2) 10/19/17 11:20 AST 43 units/L (5-40) H 10/20/17 06:42 ALT 21 units/L (7-56) 10/20/17 06:42 Alkaline Phosphatase 45 units/L (35-129) 10/20/17 06:42 Total Creatine Kinase 2504 units/L (55-170) H 10/20/17 06:42 CK-MB (CK-2) 2.9 ng/mL (0.0-4.0) 10/19/17 11:20 CK-MB (CK-2) Rel Index 0.0 (0-4) 10/19/17 11:20 Total Protein 6.6 g/dL (6.3-8.2) 10/20/17 06:42 Albumin 3.8 g/dL (3.9-5) L 10/20/17 06:42 Albumin/Globulin Ratio 1.4 % 10/20/17 06:42 TSH 1.970 mlU/mL (0.270-4.200) 10/11/17 21:16 Urine Color Yellow (Yellow) 10/11/17 23:09 Urine Turbidity Clear (Clear) 10/11/17 23:09 Urine pH 5.0 (5.0-7.0) 10/11/17 23:09 Ur Specific [place] 1.024 (1.003-1.030) 10/11/17 23:09 Urine Protein <15 mg/dl mg/dL (Negative) 10/11/17 23:09 Urine Glucose (UA) Neg mg/dL (Negative) 10/11/17 23:09 Urine Ketones 20 mg/dL (Negative) 10/11/17 23:09 Urine Blood Neg (Negative) 10/11/17 23:09 Urine Nitrite Neg (Negative) 10/11/17 23:09 Urine Bilirubin Neg (Negative) 10/11/17 23:09 Urine Urobilinogen < 2.0 mg/dL (<2.0) 10/11/17 23:09 Ur Leukocyte Esterase Neg (Negative) 10/11/17 23:09 Urine WBC (Auto) 2.0 /HPF (0.0-6.0) 10/11/17 23:09 Urine RBC (Auto) 1.0 /HPF (0.0-6.0) 10/11/17 23:09 Urine Mucus Few /HPF 10/11/17 23:09 Salicylates < 0.3 mg/dL (2.8-20.0) L 10/19/17 11:20 Urine Opiates Screen Presumptive negative 10/11/17 23:09 Urine Methadone Screen Presumptive negative 10/11/17 23:09 Acetaminophen < 15.0 ug/mL (10.0-30.0) 10/19/17 11:20 Ur Barbiturates Screen Presumptive negative 10/11/17 23:09 Ur Phencyclidine Scrn Presumptive negative 10/11/17 23:09 Ur Amphetamines Screen Presumptive negative 10/11/17 23:09 U Benzodiazepines Scrn Presumptive negative 10/11/17 23:09 Urine Cocaine Screen Presumptive negative 10/11/17 23:09 U Marijuana (THC) Screen Presumptive negative 10/11/17 23:09 Drugs of Abuse Note Disclamer 10/11/17 23:09 Plasma/Serum Alcohol < 0.01 % (0-0.07) 10/11/17 21:16
--- NOTE | 2017-10-20 17:52 | Progress Note ---
Subjective - Reason for Consult Consult date: 10/20/17 Reason for consult: Psychiatric Follow-up Evaluation - Chief Complaint Chief complaint: "I'm alright." Maykel is a 22-year-old -[place] male presented to the emergency department with bizarre behavior. Today, he appears depressed. He endorses paranoid ideation. Patient is guarded and withdrawn. He believes his current drug regimen is effective. However, he feels that he does not need medication. Patient is medication compliant with no side effects noted/reported. Per staff patient ate breakfast, lunch, and dinner. Also, he completed his ADL's. Mental Status Exam - Vital signs Last Vital Signs Temp 97.6 F 10/20/17 16:11 Pulse 80 10/20/17 16:11 Resp 18 10/20/17 16:11 BP 88/46 10/20/17 16:11 Pulse Ox 97 10/20/17 16:11 - Exam Narrative exam: General Appearance: Hospital gown Attitude/Behavior: Cooperative, apathetic, evasive/guarded Sensorium: Distracted Orientation: Alert and oriented x 3 Psychomotor and Musculoskeletal Activity: WNL Mood: " I'm aright." Affect: Flat, Constricted Speech/Language: Slow Thought Process: Circumstantial Thought Content: Impoverished, Paranoid Perception: WNL Concentration/Attention: Impaired Memory: Intact Suicidal Ideation/Plan: "No" Homicidal Ideation/Plan: "No" Assessment and Plan Impression: Unspecified Mood DO with psychiatric features. Today patient is calm but depressed with flat affect. Paranoia is noted. He denies SI/HI and A/ VH. DDx: Bipolar DO mixed episode Recommendation/Plan: 1. Continue 1013 with placement to inpatient psychiatric services. 2. Continue Zyprexa Zydis to 10 mg PO ODT HS for psychosis/mood. Discussed medication indications, frequency, and possible side effects.
[2017-10-21] MEDS: SODIUM CHLORIDE FLUSH SYRINGE 10 ML IV SCH ×2 (10:00→22:22)
[2017-10-21] MEDS: PEPCID PO SCH ×2 (10:00→22:22)
[2017-10-21] MEDS: HEPARIN SUB-Q SCH ×2 (10:00→22:22)
--- NOTE | 2017-10-21 12:38 | Progress Note ---
Assessment and Plan Assessment and plan: --Rhabdomyolysis; CK levels trending down to date is 1900 Continue aggressive IV hydration, closely monitor input output Preserved renal function, --Acute psychosis; Management per psychiatric, 1013 status moid middle school teacher at the bedside --Hypokalemia; corrected, closely monitor electrolytes --Possible bipolar disorder; mixed episode; management per psych --DVT prophylaxis; Lovenox Continue current management Psych recommends transfer to inpatient psych facility when medically stable Patient's condition treatment plan discussed in detail with the mother over the phone I answered all her questions. Macario of care is reviewed with the patient's nurse History Interval history: Patient seen and examined today medical records reviewed Patient is more alert and awake and cooperative Wants to go home CK levels are in 1900 today with preserved renal function Alert awake oriented 3 not in acute distress Vital signs reviewed Hospitalist Physical - Constitutional Vitals: Temp Pulse Resp BP Pulse Ox 97.9 F 75 18 104/71 100 10/21/17 07:49 10/21/17 07:49 10/21/17 07:49 10/21/17 07:49 10/21/17 07:49 General appearance: Present: no acute distress, well-nourished - EENT Eyes: Present: PERRL, EOM intact - Neck Neck: Present: supple, normal ROM - Respiratory Respiratory effort: normal Respiratory: negative: rales, rhonchi, wheezing - Cardiovascular Rhythm: regular Heart Sounds: Present: S1 & S2 - Extremities Extremities: no ischemia, No edema - Abdominal General gastrointestinal: soft, non-tender, non-distended, normal bowel sounds - Integumentary Integumentary: Present: clear, warm - Psychiatric Psychiatric: appropriate mood/affect, cooperative - Neurologic Neurologic: CNII-XII intact, moves all extremities Results - Labs CBC & Chem 7: 10/20/17 06:42 10/20/17 06:42 Labs: Laboratory Last Values WBC 5.0 K/mm3 (4.5-11.0) 10/20/17 06:42 RBC 4.57 M/mm3 (3.65-5.03) 10/20/17 06:42 Hgb 12.5 gm/dl (11.8-15.2) 10/20/17 06:42 Hct 38.2 % (35.5-45.6) 10/20/17 06:42 MCV 84 fl (84-94) 10/20/17 06:42 MCH 27 pg (28-32) L 10/20/17 06:42 MCHC 33 % (32-34) 10/20/17 06:42 RDW 13.9 % (13.2-15.2) 10/20/17 06:42 Plt Count 195 K/mm3 (140-440) 10/20/17 06:42 Lymph % (Auto) 41.3 % (13.4-35.0) H 10/20/17 06:42 [place] % (Auto) 15.7 % (0.0-7.3) H 10/20/17 06:42 Eos % (Auto) 2.1 % (0.0-4.3) 10/20/17 06:42 Baso % (Auto) 1.4 % (0.0-1.8) 10/20/17 06:42 Lymph # 2.0 K/mm3 (1.2-5.4) 10/20/17 06:42 [place] # 0.8 K/mm3 (0.0-0.8) 10/20/17 06:42 Eos # 0.1 K/mm3 (0.0-0.4) 10/20/17 06:42 Baso # 0.1 K/mm3 (0.0-0.1) 10/20/17 06:42 Add Manual Diff Complete 10/19/17 11:20 Total Counted 100 10/19/17 11:20 Seg Neutrophils % 39.5 % (40.0-70.0) L 10/20/17 06:42 Seg Neuts % (Manual) 41.0 % (40.0-70.0) 10/19/17 11:20 Band Neutrophils % 0 % 10/19/17 11:20 Lymphocytes % (Manual) 49.0 % (13.4-35.0) H 10/19/17 11:20 Reactive Lymphs % (Man) 0 % 10/19/17 11:20 Monocytes % (Manual) 7.0 % (0.0-7.3) 10/19/17 11:20 Eosinophils % (Manual) 3.0 % (0.0-4.3) 10/19/17 11:20 Basophils % (Manual) 0 % (0.0-1.8) 10/19/17 11:20 Metamyelocytes % 0 % 10/19/17 11:20 Myelocytes % 0 % 10/19/17 11:20 Promyelocytes % 0 % 10/19/17 11:20 Blast Cells % 0 % 10/19/17 11:20 Nucleated RBC % Not Reportable 10/19/17 11:20 Seg Neutrophils # 2.0 K/mm3 (1.8-7.7) 10/20/17 06:42 Seg Neutrophils # Man 2.2 K/mm3 (1.8-7.7) 10/19/17 11:20 Band Neutrophils # 0.0 K/mm3 10/19/17 11:20 Lymphocytes # (Manual) 2.6 K/mm3 (1.2-5.4) 10/19/17 11:20 Abs React Lymphs (Man) 0.0 K/mm3 10/19/17 11:20 Monocytes # (Manual) 0.4 K/mm3 (0.0-0.8) 10/19/17 11:20 Eosinophils # (Manual) 0.2 K/mm3 (0.0-0.4) 10/19/17 11:20 Basophils # (Manual) 0.0 K/mm3 (0.0-0.1) 10/19/17 11:20 Metamyelocytes # 0.0 K/mm3 10/19/17 11:20 Myelocytes # 0.0 K/mm3 10/19/17 11:20 Promyelocytes # 0.0 K/mm3 10/19/17 11:20 Blast Cells # 0.0 K/mm3 10/19/17 11:20 WBC Morphology Not Reportable 10/19/17 11:20 Hypersegmented Neuts Not Reportable 10/19/17 11:20 Hyposegmented Neuts Not Reportable 10/19/17 11:20 Hypogranular Neuts Not Reportable 10/19/17 11:20 Smudge Cells Not Reportable 10/19/17 11:20 Toxic Granulation Not Reportable 10/19/17 11:20 Toxic Vacuolation Not Reportable 10/19/17 11:20 Dohle Bodies Not Reportable 10/19/17 11:20 Pelger-Huet Anomaly Not Reportable 10/19/17 11:20 Stanislav Rods Not Reportable 10/19/17 11:20 Platelet Estimate Appears normal 10/19/17 11:20 Clumped Platelets Not Reportable 10/19/17 11:20 Plt Clumps, EDTA Not Reportable 10/19/17 11:20 Large Platelets Not Reportable 10/19/17 11:20 Giant Platelets Not Reportable 10/19/17 11:20 Platelet Satelliting Not Reportable 10/19/17 11:20 Plt Morphology Comment Not Reportable 10/19/17 11:20 RBC Morphology Normal 10/19/17 11:20 Dimorphic RBCs Not Reportable 10/19/17 11:20 Polychromasia Not Reportable 10/19/17 11:20 Hypochromasia Not Reportable 10/19/17 11:20 Poikilocytosis Not Reportable 10/19/17 11:20 Anisocytosis Not Reportable 10/19/17 11:20 Microcytosis Not Reportable 10/19/17 11:20 Macrocytosis Not Reportable 10/19/17 11:20 Spherocytes Not Reportable 10/19/17 11:20 Pappenheimer Bodies Not Reportable 10/19/17 11:20 Sickle Cells Not Reportable 10/19/17 11:20 Target Cells Not Reportable 10/19/17 11:20 Tear Drop Cells Not Reportable 10/19/17 11:20 Ovalocytes Not Reportable 10/19/17 11:20 Helmet Cells Not Reportable 10/19/17 11:20 [place] Bodies Not Reportable 10/19/17 11:20 [place] Rings Not Reportable 10/19/17 11:20 [place] Cells Not Reportable 10/19/17 11:20 Bite Cells Not Reportable 10/19/17 11:20 Crenated Cell Not Reportable 10/19/17 11:20 Elliptocytes Not Reportable 10/19/17 11:20 Acanthocytes (Spur) Not Reportable 10/19/17 11:20 Rouleaux Not Reportable 10/19/17 11:20 Hemoglobin C Crystals Not Reportable 10/19/17 11:20 Schistocytes Not Reportable 10/19/17 11:20 Malaria parasites Not Reportable 10/19/17 11:20 [place] Bodies Not Reportable 10/19/17 11:20 Hem Pathologist Commnt No 10/19/17 11:20 Sodium 137 mmol/L (137-145) 10/20/17 06:42 Potassium 3.6 mmol/L (3.6-5.0) 10/20/17 06:42 Chloride 98.7 mmol/L (98-107) 10/20/17 06:42 Carbon Dioxide 25 mmol/L (22-30) 10/20/17 06:42 Anion Gap 17 mmol/L 10/20/17 06:42 BUN 9 mg/dL (9-20) 10/20/17 06:42 Creatinine 0.8 mg/dL (0.8-1.5) 10/20/17 06:42 Estimated GFR > 60 ml/min 10/20/17 06:42 BUN/Creatinine Ratio 11 % 10/20/17 06:42 Glucose 83 mg/dL (75-100) 10/20/17 06:42 Lactic Acid 1.20 mmol/L (0.7-2.0) 10/19/17 11:20 Calcium 8.7 mg/dL (8.4-10.2) 10/20/17 06:42 Total Bilirubin 0.40 mg/dL (0.1-1.2) 10/20/17 06:42 Direct Bilirubin < 0.2 mg/dL (0-0.2) 10/19/17 11:20 AST 43 units/L (5-40) H 10/20/17 06:42 ALT 21 units/L (7-56) 10/20/17 06:42 Alkaline Phosphatase 45 units/L (35-129) 10/20/17 06:42 Total Creatine Kinase 1994 units/L (55-170) H 10/20/17 19:19 CK-MB (CK-2) 2.9 ng/mL (0.0-4.0) 10/19/17 11:20 CK-MB (CK-2) Rel Index 0.0 (0-4) 10/19/17 11:20 Total Protein 6.6 g/dL (6.3-8.2) 10/20/17 06:42 Albumin 3.8 g/dL (3.9-5) L 10/20/17 06:42 Albumin/Globulin Ratio 1.4 % 10/20/17 06:42 TSH 1.970 mlU/mL (0.270-4.200) 10/11/17 21:16 Urine Color Yellow (Yellow) 10/11/17 23:09 Urine Turbidity Clear (Clear) 10/11/17 23:09 Urine pH 5.0 (5.0-7.0) 10/11/17 23:09 Ur Specific [place] 1.024 (1.003-1.030) 10/11/17 23:09 Urine Protein <15 mg/dl mg/dL (Negative) 10/11/17 23:09 Urine Glucose (UA) Neg mg/dL (Negative) 10/11/17 23:09 Urine Ketones 20 mg/dL (Negative) 10/11/17 23:09 Urine Blood Neg (Negative) 10/11/17 23:09 Urine Nitrite Neg (Negative) 10/11/17 23:09 Urine Bilirubin Neg (Negative) 10/11/17 23:09 Urine Urobilinogen < 2.0 mg/dL (<2.0) 10/11/17 23:09 Ur Leukocyte Esterase Neg (Negative) 10/11/17 23:09 Urine WBC (Auto) 2.0 /HPF (0.0-6.0) 10/11/17 23:09 Urine RBC (Auto) 1.0 /HPF (0.0-6.0) 10/11/17 23:09 Urine Mucus Few /HPF 10/11/17 23:09 Salicylates < 0.3 mg/dL (2.8-20.0) L 10/19/17 11:20 Urine Opiates Screen Presumptive negative 10/11/17 23:09 Urine Methadone Screen Presumptive negative 10/11/17 23:09 Acetaminophen < 15.0 ug/mL (10.0-30.0) 10/19/17 11:20 Ur Barbiturates Screen Presumptive negative 10/11/17 23:09 Ur Phencyclidine Scrn Presumptive negative 10/11/17 23:09 Ur Amphetamines Screen Presumptive negative 10/11/17 23:09 U Benzodiazepines Scrn Presumptive negative 10/11/17 23:09 Urine Cocaine Screen Presumptive negative 10/11/17 23:09 U Marijuana (THC) Screen Presumptive negative 10/11/17 23:09 Drugs of Abuse Note Disclamer 10/11/17 23:09 Plasma/Serum Alcohol < 0.01 % (0-0.07) 10/11/17 21:16
[2017-10-22] MEDS: SODIUM CHLORIDE FLUSH SYRINGE 10 ML IV SCH ×2 (10:09→21:21)
[2017-10-22] MEDS: PEPCID PO SCH ×2 (10:09→21:01)
[2017-10-22] MEDS: HEPARIN SUB-Q SCH ×2 (10:09→21:01)
--- NOTE | 2017-10-22 10:39 | Progress Note ---
Subjective - Reason for Consult Consult date: 10/22/17 Reason for consult: Psychiatry Follow-up - Chief Complaint Chief complaint: "The patient refuse to talk" 22-year-old -[place] male presents to the emergency department with bizarre behavior. Today the patient is uncooperative during the assessment. per the sitter, the patient ate "most" of his breakfast this morning. The patient refuses to answer questions. He kept his head covered during the interview. Per collateral information from his mother Ms Roopa Fernandez, she stated that her son had been experiencing bizarre behavior and a poor appetite intermittently for at least 2 months. She denies that her son has a mental health dx. Also, she denies a fam hx of mental illness. Mental Status Exam - Vital signs Last Vital Signs Temp 98.3 F 10/22/17 07:16 Pulse 68 10/22/17 07:16 Resp 20 10/22/17 07:16 BP 98/57 10/22/17 07:16 Pulse Ox 99 10/22/17 07:16 - Exam Narrative exam: Unable to complete MSE, patient is uncooperative. Assessment and Plan Impression: Unspecified Mood DO with psy features. Today the patient is uncooperative during the assessment. Last CK 1993. DDx: Bipolar DO mixed episode Recommendation/Plan: Continue 1013 with placement to inpatient psy services once medically clear. Hold antipsychotics until CK level normalize.
[2017-10-22 11:00] LABS: BUN/Creatinine Ratio 10; Blood Urea Nitrogen 8 mg/dL (9-20); Calcium 9.6 mg/dL (8.4-10.2); Hemolysis Index 16
[2017-10-22] MEDS ORDERED: NACL 0.9% 500 ML 500 ML IV ONE (11:00)
--- NOTE | 2017-10-22 14:04 | Discharge Summary ---
Providers - Providers Date of Admission: 10/19/17 13:48 Date of discharge: 10/22/17 Attending physician: NOEL PATEL 10/19/17 Consult to Case Management [CONS] Routine Services Needed at Discharge: Extraction Supervisor Notified:: serene 10/19/17 16:11 Consult to Mental Health [CONS] Routine Reason For Exam: [place] consult to:: roberto/fred Notified:: Phone number called:: [phone] Was contact made?: Yes If yes, spoke with:: darrell Time called:: 09:42 Primary care physician: SENIOR SOFTWARE PROJECT MANAGER Hospitalization Reason for admission: bizarre behavior/rhabdomyolysis Condition: Stable Hospital course: --Rhabdomyolysis; CK levels trending down to date is 1900 Continue aggressive IV hydration, closely monitor input output Preserved renal function, --Acute psychosis; Management per psychiatric, 1013 status communications intern at the bedside --Hypokalemia; corrected, closely monitor electrolytes --Possible bipolar disorder; mixed episode; management per psych Disposition: DC/[place]-65 PSY HOSP/PSY UNIT Time spent for discharge: 32 min Core Measure Documentation - Palliative Care Palliative Care/ Comfort Measures: Not Applicable - Core Measures Any of the following diagnoses?: none Exam - Constitutional Vitals: Temp Pulse Resp BP Pulse Ox 98.3 F 68 20 98/57 99 10/22/17 07:16 10/22/17 07:16 10/22/17 07:16 10/22/17 07:16 10/22/17 07:16 General appearance: Present: no acute distress, well-nourished - EENT Eyes: Present: PERRL, EOM intact - Neck Neck: Present: supple, normal ROM - Respiratory Respiratory effort: normal - Cardiovascular Rhythm: regular Heart Sounds: Present: S1 & S2 - Extremities Extremities: No edema - Abdominal General gastrointestinal: Present: soft, non-tender - Integumentary Integumentary: Present: clear, warm - Musculoskeletal Musculoskeletal: strength equal bilaterally - Psychiatric Psychiatric: other (refuses to talk) - Neurologic Neurologic: other (refuses to talk) Plan Activity: advance as tolerated, other (1013) Diet: regular, other (plenty of oral fluids) Additional Instructions: Patient is being transferred to inpatient psych facility today. Medically stable. Advised to take plenty of oral fluids. Check CPK, BMP in 2 days Follow up with: PRIMARY CARE, [Primary Care Provider] - 3-5 Days
--- NOTE | 2017-10-22 17:32 | Progress Note ---
Assessment and Plan Assessment and plan: --Rhabdomyolysis; preserved renal function , CK levels improving today is 985, continue aggressive IV hydration, input output monitoring, plenty of oral fluids --Acute psychosis; not on any antipsychotic medications Management per psychiatric, 1013 status Transfer to inpatient psych facility when set up, patient medically stable --Hypokalemia; corrected, --Hypoglycemia; secondary to poor oral intake, encourage oral nutrition D5 normal saline, closely monitor glucose levels --Possible bipolar disorder; mixed episode; management per psych --DVT prophylaxis; Lovenox Disposition; transfer to inpatient psych facility when set up Follow CK levels 1013 status History Interval history: The patient was initially cleared medically for discharge and transfer to psych facility The nurse talked to psych facility, may need to reevaluate cannot be discharged today. Patient is comfortable sometimes refusing to be examined No new complaints CK 1900s, preserved renal function Vital signs reviewed stable 1013 status Hospitalist Physical - Constitutional Vitals: Temp Pulse Resp BP Pulse Ox 98.1 F 69 18 101/50 98 10/22/17 16:02 10/22/17 16:02 10/22/17 16:02 10/22/17 16:02 10/22/17 16:02 General appearance: Present: no acute distress, well-nourished - EENT Eyes: Present: PERRL, EOM intact - Neck Neck: Present: supple, normal ROM - Respiratory Respiratory effort: normal Respiratory: negative: rales, rhonchi, wheezing - Cardiovascular Rhythm: regular Heart Sounds: Present: S1 & S2 - Extremities Extremities: no ischemia, No edema - Abdominal General gastrointestinal: soft, non-tender, non-distended, normal bowel sounds - Integumentary Integumentary: Present: clear, warm - Psychiatric Psychiatric: appropriate mood/affect, cooperative - Neurologic Neurologic: CNII-XII intact, moves all extremities Results - Labs CBC & Chem 7: 10/20/17 06:42 10/22/17 09:42 Labs: Laboratory Last Values WBC 5.0 K/mm3 (4.5-11.0) 10/20/17 06:42 RBC 4.57 M/mm3 (3.65-5.03) 10/20/17 06:42 Hgb 12.5 gm/dl (11.8-15.2) 10/20/17 06:42 Hct 38.2 % (35.5-45.6) 10/20/17 06:42 MCV 84 fl (84-94) 10/20/17 06:42 MCH 27 pg (28-32) L 10/20/17 06:42 MCHC 33 % (32-34) 10/20/17 06:42 RDW 13.9 % (13.2-15.2) 10/20/17 06:42 Plt Count 195 K/mm3 (140-440) 10/20/17 06:42 Lymph % (Auto) 41.3 % (13.4-35.0) H 10/20/17 06:42 [place] % (Auto) 15.7 % (0.0-7.3) H 10/20/17 06:42 Eos % (Auto) 2.1 % (0.0-4.3) 10/20/17 06:42 Baso % (Auto) 1.4 % (0.0-1.8) 10/20/17 06:42 Lymph # 2.0 K/mm3 (1.2-5.4) 10/20/17 06:42 [place] # 0.8 K/mm3 (0.0-0.8) 10/20/17 06:42 Eos # 0.1 K/mm3 (0.0-0.4) 10/20/17 06:42 Baso # 0.1 K/mm3 (0.0-0.1) 10/20/17 06:42 Add Manual Diff Complete 10/19/17 11:20 Total Counted 100 10/19/17 11:20 Seg Neutrophils % 39.5 % (40.0-70.0) L 10/20/17 06:42 Seg Neuts % (Manual) 41.0 % (40.0-70.0) 10/19/17 11:20 Band Neutrophils % 0 % 10/19/17 11:20 Lymphocytes % (Manual) 49.0 % (13.4-35.0) H 10/19/17 11:20 Reactive Lymphs % (Man) 0 % 10/19/17 11:20 Monocytes % (Manual) 7.0 % (0.0-7.3) 10/19/17 11:20 Eosinophils % (Manual) 3.0 % (0.0-4.3) 10/19/17 11:20 Basophils % (Manual) 0 % (0.0-1.8) 10/19/17 11:20 Metamyelocytes % 0 % 10/19/17 11:20 Myelocytes % 0 % 10/19/17 11:20 Promyelocytes % 0 % 10/19/17 11:20 Blast Cells % 0 % 10/19/17 11:20 Nucleated RBC % Not Reportable 10/19/17 11:20 Seg Neutrophils # 2.0 K/mm3 (1.8-7.7) 10/20/17 06:42 Seg Neutrophils # Man 2.2 K/mm3 (1.8-7.7) 10/19/17 11:20 Band Neutrophils # 0.0 K/mm3 10/19/17 11:20 Lymphocytes # (Manual) 2.6 K/mm3 (1.2-5.4) 10/19/17 11:20 Abs React Lymphs (Man) 0.0 K/mm3 10/19/17 11:20 Monocytes # (Manual) 0.4 K/mm3 (0.0-0.8) 10/19/17 11:20 Eosinophils # (Manual) 0.2 K/mm3 (0.0-0.4) 10/19/17 11:20 Basophils # (Manual) 0.0 K/mm3 (0.0-0.1) 10/19/17 11:20 Metamyelocytes # 0.0 K/mm3 10/19/17 11:20 Myelocytes # 0.0 K/mm3 10/19/17 11:20 Promyelocytes # 0.0 K/mm3 10/19/17 11:20 Blast Cells # 0.0 K/mm3 10/19/17 11:20 WBC Morphology Not Reportable 10/19/17 11:20 Hypersegmented Neuts Not Reportable 10/19/17 11:20 Hyposegmented Neuts Not Reportable 10/19/17 11:20 Hypogranular Neuts Not Reportable 10/19/17 11:20 Smudge Cells Not Reportable 10/19/17 11:20 Toxic Granulation Not Reportable 10/19/17 11:20 Toxic Vacuolation Not Reportable 10/19/17 11:20 Dohle Bodies Not Reportable 10/19/17 11:20 Pelger-Huet Anomaly Not Reportable 10/19/17 11:20 Stanislav Rods Not Reportable 10/19/17 11:20 Platelet Estimate Appears normal 10/19/17 11:20 Clumped Platelets Not Reportable 10/19/17 11:20 Plt Clumps, EDTA Not Reportable 10/19/17 11:20 Large Platelets Not Reportable 10/19/17 11:20 Giant Platelets Not Reportable 10/19/17 11:20 Platelet Satelliting Not Reportable 10/19/17 11:20 Plt Morphology Comment Not Reportable 10/19/17 11:20 RBC Morphology Normal 10/19/17 11:20 Dimorphic RBCs Not Reportable 10/19/17 11:20 Polychromasia Not Reportable 10/19/17 11:20 Hypochromasia Not Reportable 10/19/17 11:20 Poikilocytosis Not Reportable 10/19/17 11:20 Anisocytosis Not Reportable 10/19/17 11:20 Microcytosis Not Reportable 10/19/17 11:20 Macrocytosis Not Reportable 10/19/17 11:20 Spherocytes Not Reportable 10/19/17 11:20 Pappenheimer Bodies Not Reportable 10/19/17 11:20 Sickle Cells Not Reportable 10/19/17 11:20 Target Cells Not Reportable 10/19/17 11:20 Tear Drop Cells Not Reportable 10/19/17 11:20 Ovalocytes Not Reportable 10/19/17 11:20 Helmet Cells Not Reportable 10/19/17 11:20 Qu[place] Bodies Not Reportable 10/19/17 11:20 [place] Rings Not Reportable 10/19/17 11:20 [place] Cells Not Reportable 10/19/17 11:20 Bite Cells Not Reportable 10/19/17 11:20 Crenated Cell Not Reportable 10/19/17 11:20 Elliptocytes Not Reportable 10/19/17 11:20 Acanthocytes (Spur) Not Reportable 10/19/17 11:20 Rouleaux Not Reportable 10/19/17 11:20 Hemoglobin C Crystals Not Reportable 10/19/17 11:20 Schistocytes Not Reportable 10/19/17 11:20 Malaria parasites Not Reportable 10/19/17 11:20 [place]i Bodies Not Reportable 10/19/17 11:20 Hem Pathologist Commnt No 10/19/17 11:20 Sodium 141 mmol/L (137-145) 10/22/17 09:42 Potassium 3.8 mmol/L (3.6-5.0) 10/22/17 09:42 Chloride 100.0 mmol/L (98-107) 10/22/17 09:42 Carbon Dioxide 28 mmol/L (22-30) 10/22/17 09:42 Anion Gap 17 mmol/L 10/22/17 09:42 BUN 8 mg/dL (9-20) L 10/22/17 09:42 Creatinine 0.8 mg/dL (0.8-1.5) 10/22/17 09:42 Estimated GFR > 60 ml/min 10/22/17 09:42 BUN/Creatinine Ratio 10 % 10/22/17 09:42 Glucose 62 mg/dL (75-100) L 10/22/17 09:42 Lactic Acid 1.20 mmol/L (0.7-2.0) 10/19/17 11:20 Calcium 9.6 mg/dL (8.4-10.2) 10/22/17 09:42 Magnesium 1.90 mg/dL (1.7-2.3) 10/22/17 09:42 Total Bilirubin 0.40 mg/dL (0.1-1.2) 10/20/17 06:42 Direct Bilirubin < 0.2 mg/dL (0-0.2) 10/19/17 11:20 AST 43 units/L (5-40) H 10/20/17 06:42 ALT 21 units/L (7-56) 10/20/17 06:42 Alkaline Phosphatase 45 units/L (35-129) 10/20/17 06:42 Total Creatine Kinase 985 units/L (55-170) H 10/22/17 09:42 CK-MB (CK-2) 2.9 ng/mL (0.0-4.0) 10/19/17 11:20 CK-MB (CK-2) Rel Index 0.0 (0-4) 10/19/17 11:20 Total Protein 6.6 g/dL (6.3-8.2) 10/20/17 06:42 Albumin 3.8 g/dL (3.9-5) L 10/20/17 06:42 Albumin/Globulin Ratio 1.4 % 10/20/17 06:42 TSH 1.970 mlU/mL (0.270-4.200) 10/11/17 21:16 Urine Color Yellow (Yellow) 10/11/17 23:09 Urine Turbidity Clear (Clear) 10/11/17 23:09 Urine pH 5.0 (5.0-7.0) 10/11/17 23:09 Ur Specific [place] 1.024 (1.003-1.030) 10/11/17 23:09 Urine Protein <15 mg/dl mg/dL (Negative) 10/11/17 23:09 Urine Glucose (UA) Neg mg/dL (Negative) 10/11/17 23:09 Urine Ketones 20 mg/dL (Negative) 10/11/17 23:09 Urine Blood Neg (Negative) 10/11/17 23:09 Urine Nitrite Neg (Negative) 10/11/17 23:09 Urine Bilirubin Neg (Negative) 10/11/17 23:09 Urine Urobilinogen < 2.0 mg/dL (<2.0) 10/11/17 23:09 Ur Leukocyte Esterase Neg (Negative) 10/11/17 23:09 Urine WBC (Auto) 2.0 /HPF (0.0-6.0) 10/11/17 23:09 Urine RBC (Auto) 1.0 /HPF (0.0-6.0) 10/11/17 23:09 Urine Mucus Few /HPF 10/11/17 23:09 Salicylates < 0.3 mg/dL (2.8-20.0) L 10/19/17 11:20 Urine Opiates Screen Presumptive negative 10/11/17 23:09 Urine Methadone Screen Presumptive negative 10/11/17 23:09 Acetaminophen < 15.0 ug/mL (10.0-30.0) 10/19/17 11:20 Ur Barbiturates Screen Presumptive negative 10/11/17 23:09 Ur Phencyclidine Scrn Presumptive negative 10/11/17 23:09 Ur Amphetamines Screen Presumptive negative 10/11/17 23:09 U Benzodiazepines Scrn Presumptive negative 10/11/17 23:09 Urine Cocaine Screen Presumptive negative 10/11/17 23:09 U Marijuana (THC) Screen Presumptive negative 10/11/17 23:09 Drugs of Abuse Note Disclamer 10/11/17 23:09 Plasma/Serum Alcohol < 0.01 % (0-0.07) 10/11/17 21:16
[2017-10-23 08:40] VITALS: BP 108/56
[2017-10-23] MEDS: PEPCID PO SCH (09:20)
[2017-10-23] MEDS: HEPARIN SUB-Q SCH (09:20)
[2017-10-23] MEDS: SODIUM CHLORIDE FLUSH SYRINGE 10 ML IV SCH (09:21)
--- NOTE | 2017-10-23 10:47 | Progress Note ---
Subjective - Reason for Consult Consult date: 10/23/17 Reason for consult: Psychiatry Follow-up - Chief Complaint Chief complaint: "The patient continue not to communicate" 22-year-old -[place] male presents to the emergency department with bizarre behavior. Today the patient is uncooperative during the assessment. No changes from previous assessment (10/22/2017). Per the sitter, the patient ate 100% of his meal. Mental Status Exam - Vital signs Last Vital Signs Temp 97.3 F L 10/23/17 08:30 Pulse 80 10/23/17 08:30 Resp 18 10/23/17 08:30 BP 108/56 10/23/17 08:30 Pulse Ox 97 10/23/17 08:30 - Exam Narrative exam: Unable to complete MSE, patient is uncooperative. Assessment and Plan Impression: Unspecified Mood DO with psy features. Today the patient is uncooperative during the assessment. Last CK 985. DDx: Bipolar DO mixed episode Recommendation/Plan: Continue 1013 with placement to [facility] today, pending transport time.
--- NOTE | 2017-10-23 12:12 | Discharge Summary ---
Providers - Providers Date of Admission: 10/19/17 13:48 Attending physician: TONY MACIAS MD 10/19/17 Consult to Case Management [CONS] Routine Services Needed at Discharge: Field Enumerator Notified:: serene 10/19/17 16:11 Consult to Mental Health [CONS] Routine Reason For Exam: [place] consult to:: roberto/fred Notified:: Phone number called:: [phone] Was contact made?: Yes If yes, spoke with:: darrell Time called:: 09:42 Primary care physician: DECONTAMINATION TECHNICIAN Hospitalization Condition: Stable Hospital course: 22-year-old -[place]one[place] male presented to the emergency department with bizarre behavior and catatonic state. Was in ER rm 14 for 8 days .Today while being cleared for transfer ED physician noted High CK levels of around 3900 = hence admission No SOB .Now calm and cooperative --Rhabdomyolysis; preserved renal function , CK levels improving today is 985, continue aggressive IV hydration, input output monitoring, plenty of oral fluids --Acute psychosis; not on any antipsychotic medications Management per psychiatric, 1013 status Transfer to inpatient psych facility when set up, patient medically stable --Hypokalemia; corrected, --Hypoglycemia; secondary to poor oral intake, encourage oral nutrition D5 normal saline, closely monitor glucose levels --Possible bipolar disorder; mixed episode; management per psych --DVT prophylaxis; Lovenox Disposition; transfer to inpatient psych facility when set up Follow CK levels 1013 status Disposition: [id number]/TX-65 PSY HOSP/PSY UNIT Time spent for discharge: 33 minutes Core Measure Documentation - Palliative Care Palliative Care/ Comfort Measures: Not Applicable - Core Measures Any of the following diagnoses?: none Exam - Constitutional Vitals: Temp Pulse Resp BP Pulse Ox 97.3 F L 80 18 108/56 97 10/23/17 08:30 10/23/17 08:30 10/23/17 08:30 10/23/17 08:30 10/23/17 08:30 General appearance: Present: no acute distress, well-nourished - EENT Eyes: Present: PERRL ENT: hearing intact, clear oral mucosa - Neck Neck: Present: supple, normal ROM - Respiratory Respiratory effort: normal Respiratory: bilateral: CTA - Cardiovascular Heart Sounds: Present: S1 & S2. Absent: rub, click - Extremities Extremities: pulses symmetrical, No edema Peripheral Pulses: within normal limits - Abdominal General gastrointestinal: Present: soft, non-tender, non-distended, normal bowel sounds Male genitourinary: Present: normal - Integumentary Integumentary: Present: clear, warm, dry - Musculoskeletal Musculoskeletal: gait normal, strength equal bilaterally - Psychiatric Psychiatric: no appropriate mood/affect, no cooperative, other (catatonic, refusing to participate with exam) - Neurologic Neurologic: CNII-XII intact, moves all extremities Plan Follow up with: PRIMARY CARE, [Primary Care Provider] - 3-5 Days
--- NOTE | 2017-10-23 21:58 | Progress Note ---
Subjective - Reason for Consult Consult date: 10/17/17 Reason for consult: Psychiatric Follow-up Evaluation - Chief Complaint Chief complaint: "I'm alright. " Maykel is a 22-year-old -[place] male presented to the emergency department with bizarre behavior. Today patient states " I don't know why I'm here." When asked certain questions patient refuses to speak with provider. He makes poor eye and is selectively mute. Per staff patient is eating and completing ADL's. Patient encouraged to communicate with provider. Mental Status Exam - Vital signs Last Vital Signs Temp 97.3 F L 10/23/17 08:30 Pulse 80 10/23/17 08:30 Resp 18 10/23/17 08:30 BP 108/56 10/23/17 08:30 Pulse Ox 97 10/23/17 08:30 - Exam Narrative exam: General Appearance: Hospital gown Attitude/Behavior: Cooperative, evasive/guarded Sensorium: Distracted Orientation: Alert and oriented x 1 (person) Psychomotor and Musculoskeletal Activity: WNL Mood: " I'm aright." Affect: Flat, Constricted Speech/Language: Slow. Selectively Mute Thought Process: Circumstantial Thought Content: Impoverished, Paranoid Perception: Unable to Assess Concentration/Attention: Impaired Memory: Intact Suicidal Ideation/Plan: Unable to Assess Homicidal Ideation/Plan: Unable to Assess Assessment and Plan Impression: Unspecified Mood DO with psy features. Today the patient is calm but uncooperative. Patient is selectively mute as well as guarded/evasive. Although patient is strongly encouraged to speak with provider he continues to ignore her. DDx: Bipolar DO mixed episode Recommendation/Plan: 1. Extended 1013 with placement to inpatient psy services. 2. Continue Zyprexa Zydis to 10 mg PO ODT HS for psychosis/mood. Discussed possible metabolic side effects of Zyprexa Zydis patient.
== END 2017-10-23 12:20 | DRG 558 ==
LOC: ED 18:28 → 3A 10-19 13:48
PROVIDERS: ADMIT Internal Medicine; ATTEND Internal Medicine
DX: M62.82 Rhabdomyolysis (principal); F23 Brief psychotic disorder; F31.60 Bipolar disorder, current episode mixed, unspecified; E87.6 Hypokalemia; E16.2 Hypoglycemia, unspecified
CPT/HCPCS: 36415; 70450; 80048; 80053; 80074; 80307; 80320; 81001; 82140; 82550; 82553; 83735; 84443; 85007; 85025; 96361; 96372; 96374; G0480; J1200; J1630; J1644; J2060; J3486; J7030